=== PATIENT | female | born 1995 | race Caucasian/White ===

== ENCOUNTER 2024-08-08 11:09 | Outpatient (CLI) | payer MEDICAID, SELFPAY ==
[2024-08-09 13:41] LABS: Strep B DNA Probe Negative (Negative)
[2024-08-09 13:52] LABS: Strep B Susceptibility Needed? No
== END 2024-08-08 11:10 | disposition home or self-care (01) ==
LOC: NFLDREF 11:09
PROVIDERS: Visit Provider Registered Nurse
DX: Z34.03 Encounter for supervision of normal first pregnancy, third trimester (principal)
CPT/HCPCS: 87081; 87653

== ENCOUNTER 2024-08-12 09:03 | Outpatient (CLI) | payer MEDICAID, SELFPAY | END 2024-08-12 09:04 | disposition home or self-care (01) | LOC: US 09:04 | PROVIDERS: Visit Provider Registered Nurse | DX: O24.419 Gestational diabetes mellitus in pregnancy, unspecified control (principal); Z3A.37 37 weeks gestation of pregnancy | CPT/HCPCS: 76816 ==

== ENCOUNTER 2024-09-01 16:12 | Inpatient (IN) | payer OTHER, MEDICAID, SELFPAY ==
[2024-09-01 16:11] VITALS: BMI 34.9
[2024-09-01 16:23] VITALS: TEMP 37.1
--- NOTE | 2024-09-01 16:26 | P.LDBA_ITS ---
Subjective History of Present Illness Narrative: Patient is being admitted to Labor and Delivery for IOL for GDM. She is a 29 year old at 39 2/7 weeks gestation. Her full history and physical was dictated by me 08/19/2024. Please see this for details. GDMA1 has been very well controlled. Lucina transferred to our care at 35w6d from [facility] and had 4 visits with us. Specific Issues/Plans G 1 P 0 Insurance Account Representative: Kelle H&P: 08/19/24 by Christina BARNETT APRN : [place]; [place] gender Transfer of care from [facility] at 35.6 Please try and get tour with next visit. #GDMA1: Continues glucometer. Tracking values 4 times daily, fasting and 2 hours postprandial. Growth US every 4 weeks starting at 28 weeks. 08/12/24-growth US for 36 weeks.-EFW 81%, AC >97%, 3.7 SDP Weekly testing starting at 40 weeks Delivery recommended at 39-41 weeks #BMI 30. A1C Baseline pre E labs completed Taking daily low dose aspirin. #Family history of possible genetic disorder. Lucina's brother's son born with tuberous sclerosis complex. Declined genetics referral. #Rubella non-immune. Rec. vaccine PP. #Low lying placenta and vasa previa. Resolved. US 06/18/24: Vessels seen near cervix, however, these seem to be uterine vessels, as they are confined to uterine wall and have venous flow. No suggestion of vasa previa today. #Inadequate weight gain. Resolved. Flu: declines Covid: declines Declined RSV vaccine Tdap: 07-11-24 Hep B: declines vaccine, low risk GBS: 08/08/24 Imaging: Last pap: NIL, neg HPV Previous records: 02/08/2024 and 02/12/2024: Blood type A positive, antibody screen negative, hemoglobin 14, platelets 296 syphilis nonreactive, hepatitis-B antigen nonreactive, HIV negative, Chlamydia gonorrhea both negative, urinalysis negative, hepatitis-B antibody negative, hepatitis C negative, varicella immune, rubella nonimmune, baseline pre E labs completed. 07/11/2024: Hemoglobin 11.5, 1 hour glucose 156, syphilis nonreactive. 07/18/2024: 3 hour glucose: 97, 214, 177, 105 Imagin02/01/2024: Single live intrauterine with dating per full report 04/25/2024: Low lying placenta. Incomplete anatomy survey. Follow-up recommended to evaluate four-chamber heart, rvot, lvot, three-vessel view, three-vessel and tracheal view, and cardiac situs. Other anatomic structures are negative for anomalies. 05/23/2024: Single intrauterine at 24 weeks 6 days. Low-lying placenta. Suspected Vasa previa. anatomy survey is now complete. No anomalies. 06/18/2024: [place] intrauterine . Cephalic presentation. No structure abnormalities or soft markers of aneuploidy identified. composite biometry consistent with assigned gestational age. CARA normal. Placenta posterior with no placenta previa on transvaginal image, measuring 3.02 cm from os. Vessels seen near cervix, however, these seem to be uterine vessels as they are confined to uterine wall and have venous flow. No suggestion of Vasa previa today. OB - Problem Based A/P Additional Plan (1) High-risk supervision: Status: Acute (2) Gestational diabetes: Status: Acute (3) Obesity (BMI 30-39.9): Status: Acute Plan ASSESSMENT:?? 29 at 39 2/7 weeks gestation?? complicated by:??BMI 30, GDMA1, Low lying and Vasa previa sp ontaneously resolved. AC measurement >97%ile noted, EFW 81% Labor type: Induced Early labor?? Category 1 FHR pattern.??? Labor complicated by: GDMA1?? GBS negative ?? PLAN:?? 1. Routine intrapartum cares as ordered. Options for cervical ripening reviewed. Vaginal misoprostal q 4 hrs preferred by Lucina and duran. . 2. Monitoring per policy, continuous 3. Planning unmedicated or medicated . Does not desire water . Candidate for analgesia of choice.??? 4. Patient encouraged to reposition and ambulate to promote physiologic labor and .?? 5. Anticipate ? 6. Dr Michele notified of AC%ile. Anticipate possibility of shoulder dystocia. OB Exam Physical Exam Narrative: Vitals Reviewed Constitutional:? Alert and oriented x3 HEENT:? Normocephalic, atraumatic Neck:? Supple Lungs:? Clear to auscultation bilaterally Heart:? Regular rate and rhythm, no murmur, rub or gallop Abdomen:? Soft, nontender, and gravid. Vertex by Kevin's, confirmed with cervical exam. Extremities:? No edema or erythema Cervix: 0 cm/0%/-3 station/vertex verified by bedside US NST: 145 bpm/moderate variability/accelerations present /decelerations absent/contractions irreg on arrival
[2024-09-01] MEDS: miSOPROStoL 25 MCG/0.25 TABLET VAGINAL ×2 (16:51→21:07)
[2024-09-01 21:06] VITALS: BP 114/67; PULSE 96; RESP 18; TEMP 36.7
[2024-09-01] MEDS: hydrOXYzine pamoate 25 MG CAPSULE 100 MG PO (21:07)
[2024-09-01] MEDS: MORPHINE 10 MG/ML inj IM (21:07)
[2024-09-02] VITALS (13 sets, daily range): BP systolic 89–131; BP diastolic 44–81; PULSE 75–100; RESP 16–18; TEMP 36.2–37.3; O2SAT 88–98
[2024-09-02] MEDS: miSOPROStoL 25 MCG/0.25 TABLET VAGINAL (01:03)
[2024-09-02 01:24] LABS: Basophils Absolute Auto 0.02 K/uL (0.00-0.30); Basophils Percent Auto 0.2 % (0.0-3.0); Eosinophils Absolute Auto 0.12 K/uL (0.00-0.50); Eosinophils Percent Auto 1.4 % (0.0-7.0); Hematocrit 39.1 % (33.0-51.0); Hemoglobin* 12.9 gm/dL (12.0-16.0); Immature Granulocytes Abs Auto 0.01 K/uL (0.00-0.30); Immature Granulocytes Pct Auto 0.1 %; Lymphocytes Absolute Auto 2.08 K/uL (0.90-2.90); Lymphocytes Percent Auto 23.7 % (20-44); Mean Corpuscular HGB Conc 33 gm/dL (32-36); Mean Corpuscular Hemoglobin 31 pg (26-34); Mean Corpuscular Volume 94 fL (80-100); Monocytes Percent Auto 8.1 % (0.0-11.0); Neutrophils Absolute Auto 5.83 K/uL (1.7-7.0); Neutrophils Percent Auto 66.5 % (42.0-72.0); Platelet Count* 213 K/uL (140-440); RDW Coefficient of Variation % 13.8 % (11.5-15.5); Red Blood Count 4.17 m/uL (4.00-5.20); White Blood Count* 8.77 K/uL (4.50-11.00)
[2024-09-02 01:26] LABS: Slide Review Reflex No
--- NOTE | 2024-09-02 08:24 | PM.OBPNL ---
Documented by User: Berna Madrigal 09/02/24 08:42 Subjective Time Seen by Provider: 17:45 Date Seen: 09/02/24 Narrative: In to see patient to discuss options for continuing induction. Patient resting in bed, having rested overnight. She is not aware of contractions, feeling some cramping. Options discussed were continuing with vaginal Cytotec, placing Cervidil, cook catheter mechanical dilation, and Pitocin. Reviewed risks benefits for each option. Through shared decision making, we agreed for placing a cook catheter. Objective Vital Signs: Last Vital Signs Temp 98.2 F 09/02/24 05:00 Pulse 77 09/02/24 07:21 Resp 16 09/02/24 05:00 BP 110/61 09/02/24 07:21 Pulse Ox 88 09/02/24 07:22 Pelvic Exam Dilation (cm): 1.5 Effacement (%): 60 Station: -2 Contractions Monitor mode: External Contraction pattern: Regular Contraction intensity: Mild Assessment Assessment: early labor Plan Plan: 29 at 39 2/7 weeks gestation?? complicated by:??BMI 30, GDMA1,AC measurement >97%ile noted, EFW 81% Labor type: Induced Early labor?? Category 1 FHR pattern.??? Labor complicated by: GDMA1?? GBS negative ?? PLAN:?? 1. Routine intrapartum cares as ordered. Options for continuing induction discussed, opted for placing cook catheter. 2. Monitoring per policy, continuous 3. Planning unmedicated or medicated . Does not desire water . Candidate for analgesia of choice.??? 4. Patient encouraged to reposition and ambulate to promote physiologic labor and .?? 5. Anticipate ? Documented by User: Lucy Garcia CNM 09/02/24 20:57 Subjective Time Seen by Provider: 08:30 Narrative: In to see patient to discuss options for continuing induction. Patient resting in bed, having rested overnight. She is not aware of contractions, feeling some cramping. Options discussed were continuing with vaginal Cytotec, placing Cervidil, cook catheter mechanical dilation, and Pitocin. Reviewed risks benefits for each option. Through shared decision making, we agreed for placing a cook catheter. Jose Rafael Hicks CNM, placed Cook catheter with speculum. Unable to place without speculum due to very anteriorly tilted cervix. Cervix mid position on outer OS but inner OS very anterior. Able to place Cook and 60ml inserted in both the uterine and vaginal balloons. Placement confirmed with digital exam with inflation of both balloons. Patient tolerated well. Moderate amount of blood show noted with placement. Contractions Contraction Frequency: 2-5 Contraction pattern: Regular Assessment Assessment: induction ongoing Station: -2 Status: Category l Heart Rate Baseline: 140 Intermediate Variability: Moderate (6-25) Monitor Accelerations: Present Monitor Decelerations: None
[2024-09-02] MEDS: ONDANSETRON 2 MG/ML inj 4 MG IV (08:56)
--- NOTE | 2024-09-02 16:04 | P.OBPN_ITS ---
Documented by User: Berna Madrigal 09/02/24 16:16 Subjective Time Seen by Provider: 15:50 Date Seen: 09/02/24 Narrative: 29 yo @ 39 3/7 in for IOL due to GDM A1. Cook catheter has come out, patient reports some in crease in contraction intensity and pain. Sitting on birthing ball, appears overall comfortable, aware of contractions, talking through them well. at bedside and is supportive. Discussed options for management of induction including expectant management, (either here or at home), starting Pitocin, administering another Cytotec dose, trying Cervidil, or AROM. Risks/benefits discussed with each option. Questions answered, and th rough shared decision making with patient and her , we decided to begin Pitocin. Administration process/protocol explained. Objective Vital Signs: Last Vital Signs Temp 97.7 F 09/02/24 15:31 Pulse 99 09/02/24 15:31 Resp 18 09/02/24 15:31 BP 131/78 09/02/24 15:31 Pulse Ox 97 09/02/24 14:36 Pelvic Exam Station: -2 Contractions Monitor mode: External Contraction pattern: Regular Contraction intensity: Moderate Assessment Assessment: early labor Plan Plan: ASSESSMENT:?? 29 at 39 3/7 weeks gestation?? complicated by:?BMI 30, GDMA1,AC measurement >97%ile noted, EFW 81%? Labor type: Induced, early labor?? Category 1 FHR pattern.??? Labor complicated by: GDM A1?? GBS negative ?? PLAN:?? 1. Routine intrapartum cares as ordered. Begin oxytocin administration 2. Monitoring per policy, continuous 3. Planning unmedicated . Desires water . Consent signed. Hep C negative. Candidate for analgesia of choice.??? 4. Patient encouraged to reposition and ambulate to promote physiologic labor and .?? 5. Anticipate ? Documented by User: Lucy Garcia CNM 09/02/24 20:59 Subjective Narrative: 29 yo @ 39 08/15 in for IOL due to GDM A1. Cook catheter has come out spontaneously while sitting on toilet. Patient reports some in crease in contraction intensity and pain. Sitting on birthing ball, appears overall comfortable, aware of contractions, talking through them well. at bedside and is supportive. Discussed options for management of induction including expectant management, (either here or at home), starting Pitocin, administering another Cytotec dose, trying Cervidil, or AROM. Risks/benefits discussed with each option. Questions answered, and through shared decision making with patient and her , we decided to begin Pitocin. Administration process/protocol explained. Declines cervical exam at this time. Contractions Contraction Frequency: 2-4 Pitocin Rate (mU/min): 1 (initiation ) Assessment Heart Rate Baseline: 140 Shelter Variability: Moderate (6-25) Monitor Accelerations: Present Monitor Decelerations: None
[2024-09-02] MEDS: OXYTOCIN 30 unit/500 ML in NS 30 UNIT/500 ML BAG IVPB (16:14)
[2024-09-02] MEDS: LACTATED RINGERS 1000 ML 1,000 ML 125 ML IV ×2 (16:15→23:31)
[2024-09-02] MEDS: hydrOXYzine pamoate 25 MG CAPSULE 100 MG PO (23:27)
[2024-09-02] MEDS: MORPHINE 10 MG/ML inj IM (23:28)
--- NOTE | 2024-09-02 23:31 | P.OBPN_ITS ---
Subjective Date Seen: 09/02/24 Narrative: Lucina has continued to received Pitocin titrated up as appropriate. She is not feeling contractions as more then cramping most of the time but does feel more of them when up and ambulating vs laying in bed. States that she has been able to take a nap this evening. Discussed steps for continuing with induction including continuing with Pitocin titration, AROM, Cytotec/Cervidil. She requested a SVE and was found to be 4cm/50-60%/-2 but ballotable. After the cervical exam informed her that I would not feel comfortable with AROM due to position. She would like to continue with Pitocin. Discussed that if there is no or minimal cervical acid changer night or not progressing with labor by the morning that may considering switching from Pitocin back to another cervical ripening agent. Encouraged her to consider Morphine/Vistaril for sleep overnight PRN. Objective Vital Signs: Last Vital Signs Temp 98 F 09/02/24 20:05 Pulse 93 09/02/24 20:05 Resp 16 09/02/24 20:05 BP 123/81 09/02/24 20:05 Pulse Ox 93 09/02/24 18:07 Pelvic Exam Dilation (cm): 4 Effacement (%): 60 Station: -2 Contractions Monitor mode: External Contraction Frequency: 2-8 Contraction pattern: Irregular Contraction intensity: Mild Pitocin Rate (mU/min): 8 (initiation ) Assessment Assessment: induction ongoing and early labor Station: -2 Status: Category l Heart Rate Baseline: 130 Rug Underlay Machine Operator Variability: Moderate (6-25) Monitor Accelerations: Present Monitor Decelerations: None Plan Plan: ASSESSMENT:?? 29 at 39 3/7 weeks gestation?? complicated by:?BMI 30, GDMA1,AC measurement >97%ile noted, EFW 81%? Labor type: Induced, early labor?? Category 1 FHR pattern.??? Labor complicated by: GDM A1?? GBS negative ?? PLAN:?? 1. Routine intrapartum cares as ordered. Continue with oxytocin titration. 2. Monitoring per policy, continuous 3. Planning epidural analgesia. Candidate for analgesia of choice.??? 4. Patient encouraged to reposition and ambulate to promote physiologic labor and .?? 5. Anticipate ?
[2024-09-03] VITALS (137 sets, daily range): BP systolic 94–164; BP diastolic 50–121; PULSE 77–134; RESP 16; TEMP 36.7–37.8; O2SAT 94–100
[2024-09-03] MEDS: ONDANSETRON 2 MG/ML inj 4 MG IV (01:26)
[2024-09-03] MEDS: BUPIVACAINE 0.25% PF 10 ML 10 ML ML EPIDURAL (02:32)
[2024-09-03] MEDS: ROPIVACAINE 0.2% 100 ml 100 ML 12 MG EPIDURAL ×3 (02:32→17:28)
--- NOTE | 2024-09-03 02:44 | PM.ANBPRC ---
[facility] Medical History Family history of genetic disease ?Z84.89 - Family history of other specified conditions (ICD-10) Nonimmune to hepatitis B virus ?Z78.9 - Other specified health status (ICD-10) Rubella non-immune status, antepartum ?O09.899 - Supervision of other high risk pregnancies, unspecified trimester (ICD-10) ?Z28.39 - Other underimmunization status (ICD-10) Surgical History H/O eye surgery ?Z98.890 - Other specified postprocedural states (ICD-10) Family History Paternal Grandfather Diabetes Social History Narrative: Works as a [employer]. : [place] What is your current living situation?: I presently have a place to live Problems where you live: no known problems In the past 12 months, utilities in danger of being shut off: no In past 12 months, lack of transportation kept you from medical appts, meetings, work, or getting things needed for daily living: no In the past 12 mos, have been you worried that your food would run out before you had money to buy more?: never true In the past 12 mos, the food you bought just didn't last and you didn't have money to buy more?: never true Smoking Status: Never smoker How often does anyone, including family, friends and others, physically hurt you: never How often does anyone, including family, friends and others, insult or talk down to you: never How often does anyone, including family, friends and others, threaten you with harm: never How often does anyone, including family, friends and others, scream or curse at you: never Meds Home Medications and Allergies Home Medications ?Medication ?Instructions ?Recorded ?Confirmed ?Type aspirin 81 mg chewable tablet 81 mg PO QDAY 08/08/24 09/01/24 History docosahexaenoic acid 200 mg mg PO 08/08/24 08/26/24 History capsule ( DHA) Allergies Allergy/AdvReac Type Severity Reaction Status Date / Time No Known Drug Allergies Allergy Verified 09/01/24 16:35 Results Vital Signs Vital Signs: Last Vital Signs Temp 98.6 F 09/03/24 02:41 Pulse 91 09/03/24 02:43 Resp 16 09/02/24 23:34 BP 104/56 L 09/03/24 02:43 Pulse Ox 99 09/03/24 02:41 Weight: 86.636 kg Height: 157.48 cm Anesthesia Procedures Epidural Insertion Patient Location: OB Start Time: 02:00 Stop Time: 02:50 Start Date: 09/03/24 Stop Date: 09/03/24 Reason for Block: procedure for pain Patient Position: sitting Performed By: Bird Staton Preanesthetic Checklist: IV checked, risks and benefits discussed, surgical consent, monitors and equipment checked, pre-op evaluation, timeout performed and anesthesia consent Prep: chlorhexidine gluconate Monitoring: blood pressure monitoring, continuous pulse oximetry and heart rate Approach: midline Vertebral Space: lumbar (1-5) Epidural Technique: NOMAN saline Needle Type: Tuohy needle Injection Technique: continuous catheter Needle gauge: 17 Needle Length (cm): 10 cm Needle Insertion Depth (cm): 6 Catheter Gauge: 19 Catheter Type: multi-orifice Catheter at skin depth (cm): 12 Test Dose Result: negative and lidocaine 1.5% with epinephrine 1 to 200,000
[2024-09-03] MEDS: LACTATED RINGERS 1000 ML 1,000 ML 825 ML IV (03:33)
[2024-09-03] MEDS: ePHEDrine sulfate 5 MG/ML inj 10 MG IVP (05:07)
[2024-09-03] MEDS: LACTATED RINGERS 1000 ML 1,000 ML 125 ML IV (06:11)
--- NOTE | 2024-09-03 07:41 | PM.OBPNL ---
Subjective Date Seen: 09/03/24 Narrative: Lucina is a 29 yo at 39.4 weeks gestation today here for IOL that was started on Sunday night for GDM. For induction she has received cytotec, a cook catheter, and pitocin. She spontaneously ruptured just after midnight. She is currently using an epidural for pain management. She is coping well. Her cook fell out on it's own yesterday and she has since been using pitocin. It was turned off for a period over night due to tracing following SROM and epidural. It was restarted and was on 5 mu at time of rounding. She is supported in labor by her partner. She does have a rf design engineer and is planning on her coming in at some point. She desires to try to rest some this morning. Objective Exam: Objective: Constitutional: Alert and oriented x3, mild distress, coping well Vital signs stable, see nurse documentation Abdomen: gravid, contractions palpate moderate with contractions and soft between Cervix: 5 cm/70%/-1 station/vertex per RN NST: 145 bpm/moderate variability/15x15 accelerations/moderate decelerations/contractions every 5-6 mins; intermittent periods of minimal variability Vital Signs: Last Vital Signs Temp 98.9 F 09/03/24 07:07 Pulse 88 09/03/24 07:31 Resp 16 09/03/24 05:11 BP 106/61 09/03/24 07:31 Pulse Ox 97 09/03/24 07:26 Pelvic Exam Dilation (cm): 5 Effacement (%): 70 Station: -1 Contractions Monitor mode: External Contraction pattern: Irregular Contraction intensity: Mild Pitocin Rate (mU/min): 8 (initiation ) Plan Plan: 29 at 39 4/7 weeks gestation?? complicated by:?BMI 30, GDMA1,AC measurement >97%ile noted, EFW 81%? Labor type: Induced, early labor?? Category 1 FHR pattern.??? Labor complicated by: GDM A1?? GBS negative ?? PLAN:?? 1. Routine intrapartum cares as ordered. Continue with oxytocin titration. Recommended increasing it due to irregular contractions about every 5 minutes. Will recheck cervix with regular contraction pattern. 2. Monitoring per policy, continuous 3. Continue with epidural for pain management. 4. Patient encouraged to reposition and ambulate to promote physiologic labor and .?? 5. Monitor BG per protocol for GDM diet controlled. 6. Anticipate ?
[2024-09-03] MEDS: LACTATED RINGERS 1000 ML 1,000 ML 112 ML IV (10:21)
[2024-09-03 10:47] LABS: Rapid Plasma Reagin (RPR) Non Reactive (Non Reactive)
[2024-09-03] MEDS: LACTATED RINGERS 1000 ML 1,000 ML 113 ML IV (15:24)
[2024-09-03] MEDS: fentaNYL 100 MCG/2 ML inj EPIDURAL (16:10)
--- NOTE | 2024-09-03 17:53 | P.OBPN_ITS ---
Subjective Date Seen: 09/03/24 Narrative: Lucina is a 29 yo G1 at 39.4 weeks here for IOL for GDM. Her induction was started on Sunday night with cyctotec, then cook catheter, then IV pitocin. She is currently on IV pitocin and has mad slow progress during the day. At 151, a cervical exam was done with consent to assess position and insert IUPC. At this time, her MVU's were not adequate. Plan to increase pitocin. I was notified at 1730 that patient was having a lot of pressure and desired to be rechecked but was unchanged from previous exam. Patient is coping well but struggles with the pressure from position. Reassurance provided. She has her and pathology laboratory director at her bedside. Objective Exam: Objective: Constitutional: Alert and oriented x3, moderate distress, coping well Vital signs stable, see nurse documentation Abdomen: gravid, contractions palpate strong with contractions and soft between Cervix: 8 cm/90%/0 station/vertex; IUPC in place NST: 145 bpm/minimal to moderate variability/15x15 accelerations/no decel erations/contractions Vital Signs: Last Vital Signs Temp 98.3 F 09/03/24 14:00 Pulse 93 09/03/24 16:47 Resp 16 09/03/24 05:11 BP 141/84 H 09/03/24 16:47 Pulse Ox 98 09/03/24 14:37 Contractions Monitor mode: External Pitocin Rate (mU/min): 8 (initiation ) Assessment Status: Category ll Plan Plan: 29 at 39 4/7 weeks gestation?? complicated by:?BMI 30, GDMA1,AC measurement >97%ile noted, EFW 81%? Labor type: Induced, early labor?? Category 2 FHR pattern.??? Labor complicated by: GDM A1?? GBS negative ?? PLAN:?? 1. Routine intrapartum cares as ordered. Continue with oxytocin titration to reach adequate MVU's, not currently adequate but has made slow change. 2. Monitoring per policy, continuous with epidural. Has episodes of minimal variability but no decelerations and accelerations remain present throughout. 3. Continue with epidural for pain management. Epidural was accidently disc onnected and has since been bolused 2 times to assist with paint management. Now comfortable but feels pressure. 4. Patient encouraged to reposition and ambulate to promote physiologic labor and .?? 5. Monitor BG per protocol for GDM diet controlled. 6. Anticipate ?
[2024-09-03] MEDS: LACTATED RINGERS 1000 ML 1,000 ML 105 ML IV (20:50)
--- NOTE | 2024-09-03 23:09 | P.OBPN_ITS ---
Subjective Date Seen: 09/03/24 Narrative: Lucina is a 29 yo at 39 4/7 weeks gestation admitted two nights ago for IOL for GDM. Her labor is otherwise complicated by prepregnancy BMI 30, rubella non- immune, low lying placenta resolved, inadequate weight gain in early . She had cytotec, cook catheter, and IV pitocin for induction. She had SROM just after midnight this morning and contractions became more intense. She received an epidural for pain management shortly after. Her labor progress was slow throughout the day and an IUPC was placed for better assessment of contractions and titration of pitocin. She reached 18 mu with slow progress. Anterior lip noted and attempted to reduce without success. It was recommended we try position changes to try to rotate fetus and allow resolution of the anterior lip. After 1.5 hours, she was rechecked and anterior lip was still present but small and easily reduced. It would return after pushing attempts. We discussed trial of pushing for 1 hour vs proceeding with c/s. We reviewed options and agreed to attempt pushing. After 1 hour, anterior lip was still palpated and minimal descent was noted. At this time, I recommended we proceed with c/s with concern for remaining cervix and position with caput. Dr. Henning was notified of recommendation. OR team was notified for unscheduled c/s. Objective Exam: Objective: Constitutional: Alert and oriented x3, no distress, coping well Vital signs stable, see nurse documentation Abdomen: gravid, contractions palpate strong with contractions and soft between Cervix: 9.5 cm/0 station/vertex NST:145 bpm/minimal to moderate variability/15x15 accelerations/no decelerations/no contractions Vital Signs: Last Vital Signs Temp 98.7 F 09/03/24 20:39 Pulse 96 09/03/24 22:40 Resp 16 09/03/24 05:11 BP 114/56 L 09/03/24 22:40 Pulse Ox 98 09/03/24 14:37 Pelvic Exam Dilation (cm): 9.5 Station: 0 Contractions Monitor mode: External Contraction pattern: Irregular Pitocin Rate (mU/min): 8 (initiation ) Plan Plan: 29 at 39 4/7 weeks gestation?? complicated by:?BMI 30, GDMA1,AC measurement >97%ile noted, EFW 81%? Failure to progress/descend ?? PLAN:?? Consult with MD for c/s, Dr. Henning at bedside. Report given and transferred care for c/s. Will resume care . Pitocin stopped. Epidural to continue. warehouse shift supervisor notified to call OR crew for unscheduled c/s.
[2024-09-03] MEDS: AZITHROMYCIN 500 MG in 0.9 % SODIUM CHLORIDE 250 ml 250 ML 255 MG IVPB (23:21)
--- NOTE | 2024-09-03 23:30 | P.OBCN_ITS ---
OB - CN: HPI Date of Consult Time Seen by Provider: 23:15 Date Seen: 09/03/24 Patient: [facility] Patient Consult date: 09/03/24 Requesting Physician: Peyton Moody CNM Primary Care Provider: Not a Local Provider Consult Narrative Reason for consult: arrest of labor Narrative: The patient is a 29 year old G 1 P 0 at 39 4/7 weeks gestation that was admitted to the [facility] on 09/01/24 for induction of labor secondary to gestational diabetes, diet-controlled. She was treated with misoprostol, a Cook catheter, IV pitocin to a maximum of 20 mu/min, and internal monitoring of contractions. She never reached complete cervical dilation, rather has had a persistent anterior lip that would not reduce with pushing. History of Present Dating criteria: based on LMP care: good care Ultrasounds: normal 1st trimester US, normal mid trimester US and other (Growth US 08/12/24: EFW 81%, AC >97%) complications: gestational diabetes Type: diet controlled complications comment: Arturo was a late transfer of care from [place]. History History 1 Elective abortions Para 0 Spontaneous abortions Hx # Term Pregnancies Ectopic pregnancies Hx # Pregnancies Multiple births Number of Living Children 0 Labs Blood type: A (+) positive Rubella: immune RPR/VDLR: nonreactive GBS status: negative HBsAG: negative OB Labs: Lab Assessment Start: 09/01/24 16:32 Freq: ONCE Status: Complete Protocol: PC.OBGBS Activity Type Activity Date Activity User E-sign Co-sign Detail Recorded Client Recorded Date Recorded By Document 09/01/24 16:33 HCR No Response 09/01/24 16:35 HCR 09/01/24 16:33 Lab Assessment GBS Status negative GBS Additional Criteria None No Treatment Needed OK Are Labs Available Yes Maternal Blood Type A Maternal RH Factor Positive Evaluate Maternal Rubella Immune Status Non-Immune, Declined MMR Hepatitis B Surface Antigen Negative Maternal HIV Status Negative Maternal Syphillis (RPR) Status Negative PFSH PFSH Medical History Family history of genetic disease ?Z84.89 - Family history of other specified conditions (ICD-10) Nonimmune to hepatitis B virus ?Z78.9 - Other specified health status (ICD-10) Rubella non-immune status, antepartum ?O09.899 - Supervision of other high risk pregnancies, unspecified trimester (ICD-10) ?Z28.39 - Other underimmunization status (ICD-10) Surgical History H/O eye surgery ?Z98.890 - Other specified postprocedural states (ICD-10) Family History Paternal Grandfather Diabetes Social History Narrative: Works as a [employer]. : [place] What is your current living situation?: I presently have a place to live Problems where you live: no known problems In the past 12 months, utilities in danger of being shut off: no In past 12 months, lack of transportation kept you from medical appts, meetings, work, or getting things needed for daily living: no In the past 12 mos, have been you worried that your food would run out before you had money to buy more?: never true In the past 12 mos, the food you bought just didn't last and you didn't have money to buy more?: never true Smoking Status: Never smoker How often does anyone, including family, friends and others, physically hurt you : never How often does anyone, including family, friends and others, insult or talk down to you: never How often does anyone, including family, friends and others, threaten you with harm: never How often does anyone, including family, friends and others, scream or curse at you: never Meds Home Medications and Allergies Home Medications ?Medication ?Instructions ?Recorded ?Confirmed ?Type aspirin 81 mg chewable tablet 81 mg PO QDAY 08/08/24 09/01/24 History docosahexaenoic acid 200 mg mg PO 08/08/24 08/26/24 History capsule ( DHA) Allergies Allergy/AdvReac Type Severity Reaction Status Date / Time No Known Drug Allergies Allergy Verified 09/01/24 16:35 OB - H&P: Exam Physical Exam: Vital signs: Temp Pulse Resp BP Pulse Ox 98.7 F 100 16 108/56 L 98 09/03/24 20:39 09/03/24 23:24 09/03/24 05:11 09/03/24 23:24 09/03/24 14:37 Narrative: Vital noted. Constitutional: Constitutional: no acute distress Detailed Labor and Delivery Exam: Patient Gravid: Yes Tachysystole: No Contraction intensity: Strong/Firm Fetus (Single): Station: 0 (with caput) Amniotic Membrane Status: SROM Amniotic Membrane Fluid Description: Clear Heart Rate Baseline: 140 Monitor Accelerations: Absent Monitor Decelerations: None Coil Wrapper Variability: Minimal (3-5) OB - CN: A/P Assessment and Plan (1) High-risk supervision: Status: Acute (2) Gestational diabetes: Status: Acute (3) Obesity (BMI 30-39.9): Status: Acute (4) Arrested active phase of labor: Status: Acute Additional Plan Plan: (Informed consent for section obtained. Risks include, but are not limited to, bleeding, infection, injury to other organs or infant, anesthesia reactions. Discussed procedure, pain control and anticipated hospital course. Questions answered.)
--- NOTE | 2024-09-03 23:45 | P.OBPRC_ITS ---
Procedure Date of procedure: 09/04/24 Pre-op diagnosis: 1. 39 4/7 weeks gestation 2. Arrest of dilation and descent. 3. GDMA1. 4. Maternal obesity. Post-op diagnosis: same Procedure Done: Global Will [facility] bill your pro fee for this procedure?: Yes Blood Loss Measurement Type: QBL (820 mL) Bakri Used: No Surgeon: Yue Henning MD Anesthesia Type: Epidural Findings: Liveborn male infant, cephalic presentation, OP position, weight 8 # 13 oz, Apgars 8 and 9 at 1 and 5 minutes respectively. Normal uterus, tubes and overies. Copious peritoneal fluid. Procedure Name: Primary low transverse section. Procedure Description: After obtaining informed consent, the patient was taken to the operating room where epidural anesthesia was obtained and found to be adequate. She was prepared and draped in the normal sterile fashion in the dorsal supine position with a leftward tilt. A Kennedy catheter had already been inserted into the bladder during her labor. Shelley-colored urine was noted in the tubing and in the Kennedy bag. A Pfannenstiel skin incision was made with a scalpel. This incision was carried down to the underlying layer of fascia with the Bovie. The fascia was incised in the midline and the incision extended laterally. The superior and inferior aspects of the fascial incision were grasped with Lashay clamps, elevated and the underlying rectus muscles dissected off sharply and with electrocautery. The rectus muscles were then in the midline. The peritoneum was entered bluntly. Copious peritoneal fluid was noted. The Chucky O retractor was then placed into the incision. The lower uterine segment was then incised in a transverse fashion with the scalpel. Upon entry into the uterus, clear amniotic fluid was noted. The uterine incision was extended laterally with blunt finger fractionation. The infant's head was delivered atraumatically, followed by the remainder of the 's body. The nose and mouth were suctioned with the bulb suction. The cord was doubly clamped and cut, and the infant was handed off the field to Peds SILK SCREEN LAYOUT DRAFTER for evaluation. The placenta was delivered spontaneously with umbilical cord traction and fundal massage. The uterus was cleared of all clots and debris. There was uterine atony, which resolved with IV Pitocin, 1000 mg IV tranexamic acid, and uterine massage. The uterine incision was reapproximated in a running locking fashion with a 0 chromic suture. A 2nd layer of the same suture was used to imbricate in horizontal fashion. The gutters were inspected and clots removed. All instruments and retractors were removed. The anterior peritoneum was reapproximated in a running fashion with a 3-0 Vicryl suture. The subfascial tissues were carefully inspected and hemostasis assured. The fascia was reapproximated in a running fashion with a looped 0 Maxon suture. The patient noted some sharp pain during the last part of the fascial closure on the right side, therefore 10 mL of 0.25% Marcaine plain was injected into the fascia in the subcutaneous tissues on the right side. The subcutaneous tissues were copiously irrigated. Hemostasis was assured. The subcutaneous fat layer was re approximated with interrupted sutures of 3-0 plain gut. The skin was closed in a subcuticular fashion with 4-0 Vicryl. Surgical glue and dressing were applied. A TAP block was administered by anesthesia. The patient tolerated the procedure well. Sponge, lap, needle, and instrument counts were reported as correct x2. The patient was taken to the recovery room, awake, and in stable condition. She did receive two grams of IV Ancef and 500 mg IV azithromycin preoperatively. Complications: None. Pathology: none sent Surgery Debrief Performed: Yes Condition: stable Disposition: floor
[2024-09-04] VITALS (40 sets, daily range): BP systolic 96–132; BP diastolic 55–84; PULSE 85–113; RESP 16–18; TEMP 36.3–37.1; O2SAT 95–100
[2024-09-04] MEDS: CEFAZOLIN 2 GM INJ IVP (00:05)
[2024-09-04] MEDS: KETOROLAC 30 MG/ML inj IVP ×4 (00:53→21:11)
[2024-09-04] MEDS: BUPIVACAINE 0.25% 30 ML INJECTION (01:00)
--- NOTE | 2024-09-04 01:37 | P.ANES_ITS ---
Anesthesia Charges Start Date/Time Anesthesia Start Date: 09/03/24 Anesthesia Start Time: 23:51 Stop Date/Time Anesthesia Stop Date: 09/04/24 Anesthesia Stop Time: 01:30 Summary Emergency: FREEZING ROOM WORKER Coding CPT Codes CPT Codes: ANES/ANALG CS DELIVER ADD-ON - 69314 ([id number]) P2 - PATIENT W/MILD SYST DISEASE, QZ - FREEZING ROOM WORKER SVC W/O SALES COACH BY Additional Codes: Summary - Emergency: FREEZING ROOM WORKER ([id number])
--- NOTE | 2024-09-04 01:37 | W.ANESCHARGE ---
Anesthesia Charges Start Date/Time Anesthesia Start Date: 09/03/24 Anesthesia Start Time: 23:51 Stop Date/Time Anesthesia Stop Date: 09/04/24 Anesthesia Stop Time: 01:30 Summary Emergency: ORACLE APEX DEVELOPER Coding CPT Codes CPT Codes: ANES/ANALG CS DELIVER ADD-ON - 58165 ([id number]) P2 - PATIENT W/MILD SYST DISEASE, QZ - ORACLE APEX DEVELOPER SVC W/O BEEF CATTLE FARM WORKER BY Additional Codes: Summary - Emergency: ORACLE APEX DEVELOPER ([id number])
--- NOTE | 2024-09-04 01:38 | P.NB_ITS ---
Nerve Block Nerve Block Time Seen by Provider: 01:20 Date Seen: 09/04/24 Type of block requested by surgeon for post-operative analgesia: TAP Side: bilateral Time out performed: Yes Verification of patient name: Yes Verification of date of : Yes Site marking: not applicable Name of person performing procedure: mkoch Continuous monitoring Was continuous monitoring of O2 sat, B/P, property assessment monitor, recorded every 15 minutes?: Yes Procedure Checklist: sterile prep, needles and gloves Ultrasound guided. Images saved: Yes Medications given in 5ml increments after negative aspiration: Marcaine %: 0.25 mL: 30 Needle gauge: 20 and Exparel mL: 10 Needle gauge: 20 Patient tolerated procedure well: Yes Block Charges Block Charge (with Pro Fee): TAP Bilateral Use of Ultrasound Machine for Block: Yes- US Guidance/pain block
--- NOTE | 2024-09-04 10:35 | PM.ANPOST ---
Post Anesthesia Note Post Anesthesia Note Patient seen: Inpatient Respiratory Status: adequate Cardiovascular Status: adequate Mental Status: baseline Pain: adequate Temp: baseline Anesthetic awareness: N/A Complications: none Follow care: none
[2024-09-04] MEDS: ACETAMINOPHEN 500 MG TABLET 1000 MG PO ×2 (16:29→22:43)
[2024-09-04] MEDS: DOCUSATE SODIUM 100 MG CAPSULE PO (16:30)
[2024-09-04] MEDS: OXYCODONE 5 MG TABLET PO (20:15)
[2024-09-04] MEDS: SIMETHICONE 80 MG TAB.CHEW PO (21:04)
[2024-09-05 02:00] VITALS: BP 99/68; PULSE 88; RESP 18; TEMP 36.8; O2SAT 97
[2024-09-05] MEDS: KETOROLAC 30 MG/ML inj IVP ×2 (02:23→08:29)
[2024-09-05] MEDS: OXYCODONE 5 MG TABLET PO ×2 (02:47→11:15)
[2024-09-05] MEDS: ACETAMINOPHEN 500 MG TABLET 1000 MG PO ×3 (04:40→18:21)
[2024-09-05] MEDS: SIMETHICONE 80 MG TAB.CHEW PO (05:33)
[2024-09-05 07:02] LABS: Hemoglobin* 9.8 gm/dL (12.0-16.0)
--- NOTE | 2024-09-05 08:24 | P.OBPN_ITS ---
OB - PN:Subj Subjective Date Seen: 09/05/24 Narrative: Lucina is a 29 y.o. who was admitted to [facility] for indcution of labor due to GDMA1.? She had an uncomplicated primary for arrested active phase of labor.? ? The patient feels well.? The pain is well controlled with current medications.? She has no new complaints.? She is breast feeding and reports things are going ok, she desires help today with latching for flat nipple on right side.? the patient has done well.? Vitals have been stable.? She has remained afebrile.? Has a good appetite, is tolerating a general diet.? She is voiding without difficulty.? She is passing gas and has not had a bowel mov ement.? She is ambulating and denies any dizziness.? Has Small amount of rubra lochia.? OB - PN: Obj Exam Physical Exam: Vital signs: Temp Pulse Resp BP Pulse Ox O2 Del Method O2 Flow Rate 98.3 F 88 18 99/68 97 Room Air 98 09/05/24 02:00 09/05/24 02:00 09/05/24 02:00 09/05/24 02:00 09/05/24 02:00 09/05/24 02:00 09/04/24 01:50 Narrative: GENERAL APPEARANCE:? normal affect, alert, no distress MOOD:? appropriate CHEST:? clear to auscultation HEART:? regular rate and rhythm ABDOMEN:? soft, non-tender the uterine fundus is 1 cm Above Umbilicus, Midline and is appropriate for the stage of recovery. EXTREMITIES:? normal and trace edema Incision: Healing well, no surrounding erythema, abnormal induration or discharge OB - PN: Obj Data Labs Labs: Laboratory Results - last 24 hr 09/05/24 06:40 Hgb 9.8 L OB - PN: A/P Delivery Assessment and Plan (1) care following delivery: Status: Acute (2) Lactating mother: Status: Acute (3) delivery delivered: Status: Acute (4) Gestational diabetes: Status: Acute (5) Obesity (BMI 30-39.9): Status: Acute (6) Arrested active phase of labor: Status: Acute Plan day: 1 Plan: routine care Comments: Assessment/Plan?G 1 P 1 status post uncomplicated primary .? ?? 1.? Continue route PP cares? 2.? .? May see if desired? 3.? Anticipate discharge home tomorrow or the following day per pt preference? 4.? Acute anemia.? Iron supplement ordered 5. Recommended 2 hr GTT tomorrow morning, pt declines. ?
[2024-09-05] MEDS: DOCUSATE SODIUM 100 MG CAPSULE PO (08:28)
[2024-09-05 08:30] VITALS: BP 100/66; PULSE 73; RESP 16; TEMP 36.4; O2SAT 97
[2024-09-05] MEDS: IBUPROFEN 600 MG TABLET PO ×2 (14:03→20:22)
[2024-09-05 16:55] VITALS: BP 114/77; PULSE 79; RESP 16; TEMP 36.4; O2SAT 97
[2024-09-05] MEDS: FERROUS SULFATE 325 MG TABLET PO (18:19)
[2024-09-05 23:55] VITALS: BP 115/73; PULSE 88; RESP 16; TEMP 36.6; O2SAT 97
[2024-09-06] MEDS: ACETAMINOPHEN 500 MG TABLET 1000 MG PO ×2 (00:03→07:43)
[2024-09-06] MEDS: IBUPROFEN 600 MG TABLET PO (03:48)
[2024-09-06] MEDS: OXYCODONE 5 MG TABLET PO (07:43)
[2024-09-06] MEDS: DOCUSATE SODIUM 100 MG CAPSULE PO (07:43)
[2024-09-06 08:15] VITALS: BP 108/67; PULSE 68; RESP 16; TEMP 36.5; O2SAT 98
--- NOTE | 2024-09-06 09:52 | PM.OBDSVD1 ---
DS: Providers Provider Date Seen: 09/06/24 Date of admission: 09/01/24 16:12 Primary care physician: Not a Local Provider Admitting Clinician: Smita Varma CNM Consults: 09/03/24 23:08 Consult to Physician [CONS] Routine Comment: Consulting Provider: Yue Henning Has provider been notified: Yes Attending Physician on discharge: Peyton Moody CNM DS: Diagnosis Discharge Diagnosis (1) care following delivery: Status: Acute (2) Lactating mother: Status: Acute (3) delivery delivered: Status: Acute Exam Narrative: Exam Narrative: GENERAL APPEARANCE:? normal affect, alert, no distress MOOD:? appropriate CHEST:? clear to auscultation HEART:? regular rate and rhythm ABDOMEN:? soft, non-tender the uterine fundus is At Umbilicus, Midline and is appropriate for the stage of recovery. EXTREMITIES:? normal and no edema INCISION: Healing well, no surrounding erythema, abnormal induration or discharge Const: Vital Signs, click to edit/add: Vital Signs - 24 hr 09/05/24 16:55 09/05/24 23:55 09/06/24 08:15 Temperature 97.6 F 97.8 F 97.7 F Pulse Rate [Pulse Oximeter] 79 88 68 Respiratory Rate 16 16 16 Blood Pressure [Ri ght Arm] 114/77 115/73 108/67 Pulse Oximetry 97 97 98 Oxygen Delivery Me thod Room Air Room Air Room Air Documenting provider has reviewed patient's vital signs: yes OB - DS: Summary Hospital Course Hospital Course: Lucina is a 29 y.o. G 1 P 1 who was admitted to [facility] for induction of labor for GDM. ?She had a Section for failure to progress that was complicated by uterine atony with QBL of 820. The patient feels well. ?The pain is well controlled with current medications. ?She has no new complaints. ?She is breast feeding and reports things are going well. the patient has done well.? Vitals have been stable.? She has remained afebrile.? Has a good appetite, is tolerating a general diet. ?She is voiding without difficulty.? She is passing gas and has not had a bowel movement.? She is ambulating and denies any dizziness.? Has small amount of rubra lochia. Problems: Anemia Discharge home with baby.? Follow up in 2 weeks and 6 weeks.? , may see if needed? Hgb 9.8. Iron supplement ordered orally every other day?? For pain control of perineum, breast and pelvic pain, take 600 mg Ibuprofen every 6 hours as needed by mouth or 1000 mg acetaminophen (Tylenol) every 6 hours by mouth as needed. You can alternate these so you are taking something every 3 hours as needed. A heating pad can also be used for your abdomen or breasts. You may also take docusate sodium up to twice daily to soften your stools and help to prevent constipation. You may wean off of it when your stools return to normal.? Peripartum Data delivery method: Primary C/S; Labored Procedures: Procedures Operation Date: 09/04/24 00:00 Actual Procedure Side Surgeon p Section Not Applicable Yue Henning MD complications: none [place] Infant Gender: Male Infant Discharge Plan: Home Status at Discharge Functional status at discharge: independent ambulation Overall status at discharge: patient is progressing back to baseline Time Spent with Patient Time attestation: Total time spent providing and/or coordinating discharge services: Time spent: Less than 30 minutes Discharge Plan Discharge Disposition: Home, Self-Care Date of Admission: 09/01/24 16:12 Attending Provider on Discharge: Peyton Moody Consulting Providers: Yue Henning Primary Care Provider: Provider,Not a Local Condition: Stable Anticipated Discharge Date/Time: 09/06/24 12:00 Discharge Medications: New ferrous sulfate 325 mg (65 mg iron) Tablet 325 mg PO Q48H Qty: 90 0RF docusate sodium 100 mg Capsule 100 mg PO DAILY Qty: 90 0RF ibuprofen 600 mg Tablet 600 mg PO Q6H PRN (Reason: Pain) Qty: 60 0RF oxycodone 5 mg Tablet 5 - 10 mg PO Q4H PRN (Reason: Pain) Qty: 20 0RF acetaminophen 500 mg Tablet 1,000 mg PO Q6H PRN (Reason: Pain) Qty: 0 0RF Continued DHA 200 mg capsule 200 mg PO DAILY Discontinued aspirin 81 mg tablet,chewable 81 mg PO QDAY Discharge Orders: Discharge Order (Routine); Ordered 09/06/24 Ordered By: Peyton Modoy Patient Education: OB Over the Counter Medication Information, OB /Breast Feeding Additional Instructions: Discharge instructions were reviewed with the patient including signs and symptoms of infection and home going medications Lifting Restrictions: 20 pounds for 6 weeks No not submerge incision under water X 2 weeks? Nothing vaginally for 6 weeks: no tampons or intercourse Do not drive while taking narcotic pain medication(s) Off Work or School for 8 weeks 2-week visit: incision check, discuss infant feeding concerns, review control options and screen for anxiety/depression. 6-week visit for an annual exam. consultation services are available to all mothers and babies for the first year after delivery.? To make an appointment, please call [phone]. Activity Level: Activity as Tolerated Discharge Diet: Regular Follow Up Appointments: [facility] [Provider Group] Forms: MyHealth Info Instructions
== END 2024-09-06 11:48 | disposition home or self-care (01) | DRG 787 ==
PROVIDERS: Obstetrics & Gynecology; Admitting Provider Midwife; Visit Provider Midwife
PROC: (CPT 59514; principal; 2024-09-03 23:45)
DX: O24.420 Gestational diabetes mellitus in childbirth, diet controlled (principal); D62 Acute posthemorrhagic anemia; O90.81 Anemia of the puerperium; O61.0 Failed medical induction of labor; O61.1 Failed instrumental induction of labor; O32.4XX0 Maternal care for high head at term, not applicable or unspecified; O62.1 Secondary uterine inertia; G89.18 Other acute postprocedural pain; O26.86 Pruritic urticarial papules and plaques of pregnancy (PUPPP); O99.214 Obesity complicating childbirth; E66.9 Obesity, unspecified; Z28.39 Other underimmunization status; Z84.89 Family history of other specified conditions; O62.0 Primary inadequate contractions; Z37.0 Single live birth; Z3A.39 39 weeks gestation of pregnancy
CPT/HCPCS: 01967; 01968; 36415; 59200; 64488; 76942; 82962; 85018; 85025; 86592; 94761; 99140; G0463; A4314; A9270; C1726; J0456; J0665; J0666; J0690; J1100; J1885; J2250; J2270; J2274; J2371; J2405; J2590; J2795; J3010; J7050; J7120

== ENCOUNTER 2024-10-17 07:56 | Outpatient (CLI) | payer OTHER, SELFPAY | END 2024-10-17 07:57 | disposition home or self-care (01) | LOC: NFLDREF 10-18 06:59 | PROVIDERS: Visit Provider Registered Nurse | DX: Z39.1 Encounter for care and examination of lactating mother (principal); E66.9 Obesity, unspecified | CPT/HCPCS: 82947; 82950 ==